=== PATIENT | male | born 1935 | race Asian ===

== ENCOUNTER 2023-04-18 12:47 | Outpatient (CLI) | payer MEDICARE, SELFPAY ==
--- NOTE | 2023-04-18 11:20 | W.ANESCHARGE ---
Anesthesia Charges Start Date/Time Anesthesia Start Date: 04/18/23 Anesthesia Start Time: 14:15 Stop Date/Time Anesthesia Stop Date: 04/18/23 Anesthesia Stop Time: 14:39 Summary Extremes of Age - Over 70 or under 1: MDA
--- NOTE | 2023-04-18 14:36 | P.ANES_ITS ---
Anesthesia Charges Start Date/Time Anesthesia Start Date: 04/18/23 Anesthesia Start Time: 14:15 Stop Date/Time Anesthesia Stop Date: 04/18/23 Anesthesia Stop Time: 14:39 Summary Extremes of Age - Over 70 or under 1: [employer]
== END 2023-04-18 12:48 | disposition home or self-care (01) ==
LOC: OP CLINIC 12:51
PROVIDERS: Visit Provider Internal Medicine Gastroenterology
DX: K92.1 Melena (principal); K64.8 Other hemorrhoids; K57.30 Diverticulosis of large intestine without perforation or abscess without bleeding
CPT/HCPCS: 00812; 45378; 99100; J2704